=== PATIENT | female | born 1950 | race Caucasian/White ===

== ENCOUNTER 2017-07-04 01:31 | Inpatient (IN) | payer MEDICARE, OTHER ==
[2017-07-03 16:04] LABS: INR 0.98
[~2017-07-04] VITALS: Ht 165.1 cm; Wt 104.8 kg
[2017-07-04] VITALS (16 sets, daily range): BP systolic 97–165; BP diastolic 50–112
[~2017-07-04 01:31] MED LIST: ACET-1966 PO; ACET-2043 PO; ALPR-434 PO; AMAN100T4 PO; ASPI-1471 PO; CARB1TAB11 PO; CARB1TAB12 PO; CARB1TAB18 PO; CARI250T10 PO; FURO-47 PO; HYDR-389 PO; IBUP800T37 PO; LOSA50TA68 PO; NITR0.4T3 SL; POTA99TA6 PO; RANI-366 PO; ROPI2TAB27 PO; ROSU20TA23 PO; [UNRECOGNIZED DRUG - CODE] PO
[2017-07-04] MEDS ORDERED: THROMBIN TOP SOLN 5000INTLU VL ONE (09:34)
[2017-07-04] MEDS ORDERED: GELATIN SPONGE 12-7MM ONE (09:34)
[2017-07-04] MEDS ORDERED: fentaNYL CITR 250 MCG/5 ML AMP ONE (10:12)
[2017-07-04] MEDS ORDERED: LIDOCAINE MPF 1% 5 ML VIAL ONE (10:13)
[2017-07-04] MEDS ORDERED: SUGAMMADEX SOD 200 MG/2 ML SDV ONE (10:13)
[2017-07-04] MEDS ORDERED: PROPOFOL EMUL(*) 10MG/ML 20 ML 20 ML ONE (10:13)
[2017-07-04] MEDS ORDERED: DEXAMETHASONE SOD PHOS 10MG/ML ONE (10:13)
[2017-07-04] MEDS ORDERED: ONDANSETRON 4 MG/2 ML VIAL ONE ×2 (10:13→15:30)
[2017-07-04] MEDS ORDERED: FAMOTIDINE 20 MG TAB PO ONE (10:55)
[2017-07-04] MEDS ORDERED: cloNIDine EPIDUR INJ 100MCG/ML 40 MCG, ROPIVACAINE 0.5% 20 ML VIAL 25 ML, EPINEPHrine H... INJ ONE (11:20)
[2017-07-04] MEDS ORDERED: ACETAMINOPHEN 500 MG TAB PO ONE (11:20)
[2017-07-04] MEDS ORDERED: MIDAZOLAM 2 MG/2 ML VIAL IVP PRN (11:20)
[2017-07-04] MEDS ORDERED: NORMOSOL R SOLN(*) 1000 ML BAG 1,000 ML IV PRN (11:20)
[2017-07-04] MEDS ORDERED: TRANEXAMIC AC 1000 MG/10ML SDV 1,000 MG in DEXTROSE 5% 50 ML BAG 50 ML IV ONE (11:20)
[2017-07-04] MEDS ORDERED: PREGABALIN 50 MG CAP PO ONE (11:20)
[2017-07-04] MEDS ORDERED: LIDOCAINE/SOD BICARB 8.4% SYR ID ONE (11:20)
[2017-07-04] MEDS ORDERED: CELECOXIB 200 MG CAP PO ONE (11:20)
[2017-07-04] MEDS ORDERED: VANCOMYCIN(*) 1 GM VIAL 1 GM, VANCOMYCIN (*) 0.5 GM VIAL 0.5 GM in NS(*) 0.9% 250 ML BA... IVPB ONE (11:50)
[2017-07-04] MEDS ORDERED: KETAMINE HCL 200 MG/20 ML MDV ONE (12:38)
[2017-07-04] MEDS ORDERED: HYDROmorphone HCL 2 MG/ML SDV ONE (12:52)
[2017-07-04] MEDS ORDERED: ePHEDrine 25 MG/5 ML DISP.SYR IVP ONE (14:00)
[2017-07-04] MEDS ORDERED: MORPHINE SULFATE 30 MG PCA IV PRN (15:00)
[2017-07-04] MEDS ORDERED: ACETAMINOPHEN 500 MG TAB PO PRN (15:00)
[2017-07-04] MEDS ORDERED: FLUSH 10 ML SYR IVP PRN (15:00)
[2017-07-04] MEDS ORDERED: MAGNESIUM CITRATE 300 ML BTL PO PRN (15:00)
[2017-07-04] MEDS ORDERED: ONDANSETRON 4 MG/2 ML VIAL IVP PRN (15:00)
[2017-07-04] MEDS ORDERED: NALOXONE HCL 0.4 MG/ML VIAL IVP PRN (15:00)
[2017-07-04] MEDS ORDERED: PROMETHAZINE 25 MG/ML 1 ML AMP IVP PRN (15:00)
[2017-07-04] MEDS ORDERED: diphenhydrAMINE 25 MG CAP PO PRN (15:00)
[2017-07-04] MEDS ORDERED: KCL/D5LR 20 MEQ/1000 ML PREMIX 1,000 ML IV PRN (15:00)
--- NOTE | 2017-07-04 15:42 | RADIOLOGY IMAGING REPORT ---
FACILITY: [facility] PATIENT NAME: Thea Peguero : 1950 MR: [id number] V: [id number] EXAM DATE: ORDERING PHYSICIAN: DREW MONACO TECHNOLOGIST: Location: [facility] [place] Patient: Thea Peguero : 1950 Visit/Account:[id number] Date of Sevice: 07/04/2017 Exam type: SHOULDER 1 VIEW LEFT History: S/P TOTAL SHOULDER LEFT, CHECK PLACEMENT Comparison: None. Findings: There is a left shoulder arthroplasty that appears in good anatomic alignment on this AP view. A bat kinjal pack projects over the lateral aspect the left upper thorax with electrodes extending over the l eft-sided the neck IMPRESSION: 1. As above Report Dictated By: Gretchen Bray MD at 07/04/2017 3:38 PM Report E-Signed By: Gretchen Bray MD at 07/04/2017 3:39 PM WSN:[id number]
[2017-07-04] MEDS ORDERED: PROMETHAZINE 25 MG/ML 1 ML AMP ONE (16:05)
[2017-07-04] MEDS ORDERED: POTA20TA10 PO (16:34)
--- NOTE | 2017-07-04 17:57 | OPERATIVE REPORT 1 ---
EVENT DATE: July 03, 2017 SURGEON: Lester Bullock MD ANESTHESIOLOGIST: Simon Rodriguez MD ANESTHESIA: General. CHIEF CREATIVE OFFICER: RYAN Todd PREOPERATIVE DIAGNOSIS Left shoulder degenerative joint disease. POSTOPERATIVE DIAGNOSIS Left shoulder degenerative joint disease. PROCEDURE PERFORMED Left total shoulder arthroplasty. ESTIMATED BLOOD LOSS 150 TOURNIQUET TIME None. SPECIMENS None. COMPLICATIONS None. INTRAVENOUS FLUIDS Crystalloid 1400. No colloid. IMPLANTS [employer] 44 glenoid, 10 stem, 10 body, and a 48 x 18 eccentric press-fit. SUMMARY OF PROCEDURE The patient was seen in the preoperative holding area. She had been doing reasonably well. She had the remote control unit now that could be used to turn off the nerve stimulator, which was done. A decision was made not to do any type of a block because of the wires in that region. She was brought back to the operating room and was given a general anesthetic. She was placed in the semi-supine beach chair position. The left shoulder was prepped and draped in the usual sterile fashion. A deltopectoral approach was then planned to avoid the nerve stimulator motor unit. This incision was made through skin and subcutaneous tissue after adequate prep and drape using Ioban drape. The deltopectoral approach took us directly onto the cephalic vein which was left with the deltoid and retracted. I had to use a Santy spoon to develop the subdeltoid plane as it was somewhat scarred down. Her rotator cuff looked like it was in good condition. Her conjoined tendon was extremely tight, making it a bit more difficult than usual to get a retractor into that space, but we were able to do so with some internal rotation. A split was then made in the relatively healthy subscapularis, taken off as a combined structure with the capsule and placed under tension with tagging sutures. The fluid was clear. She had very large osteophytes. She was rotated into external rotation, and then the cutting guide was used to osiel the axis of the slope with the cut, after which I externally rotated and flexed her so we could get a direct look at the posterior aspect of the rotator cuff attachment and then used the saw along the initially marked axis to exit directly above the rotator cuff. I made a conservative cut first and then came back in and did another sliver to get right down to the articular cartilage edge. Extra osteophytes which were large at this time were removed, and then we used a rasp to smooth the margin at the head-neck junction. We had also split away the top 1 cm of pectoralis. After placing a metal guard on top of the cut surface, we then retracted it posteriorly and divided the biceps tendon, but left it attached to the glenoid so that we could use this a retractor to debride the labral tissue all the way circumferentially, after which I used a Gibson elevator to progressively free up the glenoid neck and do the same with the humeral neck. Having done this, we got good exposure of the glenoid and proceeded to check different sizes. Her head was quite a bit larger than 48 mm, but when we looked at the actual [place] head compared to the osteophyte, it really was adequate to do a 48. In fact, that is the exact size that she had been at one time, so we decided to use a 44 as her glenoid was rather unusual. It was quite narrow from anterior to posterior, but relatively tall. A 44 would certainly fit well on the superior to inferior dimension, but it was a little bit wide on the anterior-posterior. I did not want to go down to a 44 head. We placed the central drill hole and then the peripheral pegs, all of which were contained with the possible exception of the posterior inferior that was very close to the margin. I think there might have been some loss of containment deep. The bone was in good condition. We had also reamed down to a flat surface. Having done this, we trialed the 3 peg trial, and it sat very nicely with no evidence of rocking or irregularity. Thrombin-soaked Gelfoam was then inserted into each hole, and we waited while cement was mixed. I also took bone graft from the head and packed it into the fins of the Collins Peg Glenoid. Having mixed the cement, it was then injected into the three holes, and we attempted to place the Collins Peg Glenoid, but unfortunately, the retractor that was being used to hold back the humerus was getting in the way of the glenoid, and I tried twice to lever the glenoid in rotation to line up the holes into the backside, but it would not quite line up. By the time I made my second attempt, the cement had already started to polymerize, so I aborted this and just removed the extra cement and mixed one more batch. We changed the retractor to a Fukuda which had the hole that allowed for rotation of the implant and also used a glenoid holding tool, allowing me to apply some torque. We repeated the irrigation, repeated all of the drying of the three holes, added a little bit more bone graft, then mixed cement, and injected it one more time into the three peripheral holes. We then placed the glenoid with relative ease, impacted it into position, and held it until full polymerization. The excess cement was then removed. The wound was irrigated, and we injected a bit of local anesthetic before proceeding outward to expose the humeral head. We started with the central drill and proceeded to go larger, ultimately getting to ten which had excellent cortical chatter. The Brosteotome was used checking version which was around 30 of retro, and then we went with the trial stem, but before impacting it all the way, I had split up the sliver of humeral neck that we had cut as a secondary cut and used this as wafers of bone graft along the medial side of the neck so we could lateralize the head and also induce a little bit more stability since she was relatively tight in the intramedullary canal, but rather patulous on the metaphysis. Once we got good stability here, I trialed a couple of heads, and it looked like the 48 x 18 eccentric would be best. The trial was removed, and then we proceeded to assemble the 10 mm final implant, put it down about 4[address], added a little bit more bone graft on its anterior and posterior margins to create additional stability, placed the eccentric head in the same eccentricity that we had trialed, and then hammered the entire construct together such that the Rossi taper seated while driving the stem the last centimeter or two. The wound was irrigated again. We injected some additional local anesthetic and then repaired the subscapularis using nonabsorbable #2 suture including previously placed suture that was in three transosseous drill holes to augment the repair. The wound was irrigated again, and then we closed the subcutaneous plane and the subcuticular plane with absorbable suture, followed by Steri- Strips. She was given a dry, sterile dressing. She was awakened and transferred to the recovery room in stable condition. ANETA
[2017-07-04] MEDS ORDERED: ALPRAZolam 1 MG TAB PO PRN (18:55)
--- NOTE | 2017-07-04 18:59 | Hospitalist Consultation ---
History of Present Illness Requesting Physician Dr. Bullock Reason for Consult Hypertension History of Present Illness This patient was admitted for shoulder surgery. It is reported that the surgery went well and was without complication. History Problems: (1) HTN (hypertension) Status: Chronic (2) Parkinson disease Status: Chronic (3) Hypercholesterolemia Status: Chronic (4) Depression Status: Chronic (5) CAD (coronary artery disease) Status: Acute (6) History of mastectomy Status: Chronic (7) History of coronary artery stent placement Status: Chronic Home Meds Reported Medications Potassium Chloride (Potassium Chloride) 20 Meq Tablet.er, 1 TAB PO DAILY 07/04/17 Carbidopa/Levodopa/Entacapone ([id number] 150 MG) 1 Each Tablet, 1 EACH PO TID 07/02/17 Ranitidine Hcl (ZANTAC) 150 Mg Tablet, 150 MG PO QDAY, TAB 07/02/17 Acetaminophen (TYLENOL) 325 Mg Tablet, 650 MG PO QDAY Y for PAIN, TAB 07/02/17 Ibuprofen (IBUPROFEN) 800 Mg Tablet, 1 TAB PO QDAY Y for PAIN, TAB 07/02/17 Chlorzoxazone (CHLORZOXAZONE) 500 Mg Tablet, 500 MG PO HS, #1.5 07/02/17 Furosemide (FUROSEMIDE) 40 Mg Tablet, 1 TAB PO QDAY, TAB 07/02/17 Aspirin (ASPIR 81) 81 Mg Tablet.dr, 81 MG PO QDAY, TAB 08/29/14 Alprazolam (XANAX) 1 Mg Tablet, 1 TAB PO TID Y for ANXIETY, TAB 08/29/14 Nitroglycerin (NITROGLYCERIN) 0.4 Mg Tab.subl, 0.4 MG SL Q5MIN Y for ANGINA 08/29/14 Amantadine Hcl (AMANTADINE) 100 Mg Tablet, 100 MG PO PRN 08/29/14 Rosuvastatin Calcium (CRESTOR) 20 Mg Tablet, 20 MG PO QDAY 08/29/14 Losartan Potassium (COZAAR) 50 Mg Tablet, 100 MG PO QDAY 08/29/14 Discontinued Reported Medications Potassium Gluconate (POTASSIUM) 99 Mg Tablet, 20 MG PO QDAY 07/02/17 Carbidopa/Levodopa/Entacapone ([id number]-LILK 100 MG) 1 Each Tablet, 1 EACH PO 07/02/17 Carbidopa/Levodopa/Entacapone ([id number] 75 MG) 1 Each Tablet, 1 EACH PO 2-3XD 07/02/17 Acetaminophen/Hydrocodone (HYDROCODON-ACETAMINOPH 7.5-325) 1 Each Ea, 1-2 EACH PO Q4-6H, #40 EA 09/04/14 Carisoprodol (SOMA) 250 Mg Tablet, 250 MG PO Y for MUSCLE SPASMS, TAB 08/29/14 Ropinirole Hcl (REQUIP) 2 Mg Tablet, 2 MG PO BID 08/29/14 Allergies: Coded Allergies: carbidopa (Verified Adverse Reaction, Unknown, 07/02/17) levodopa (Verified Adverse Reaction, Unknown, 07/02/17) Patient History: FH: Parkinson's disease MOTHER FH: cancer BROTHER OR SISTER FH: heart attack FATHER, BROTHER OR SISTER FH: heart disease BROTHER OR SISTER BROTHER OR SISTER Hx Smoking: Yes (1 PPD FOR 25 YEARS, QUIT 2011) Smoking Status: Former Smoker, Heavy Tobacco Smoker Caffeine Intake: Coffee, Soda Caffeine/Cups Per Day: 1 CUP DAY Hx Alcohol Use: No Hx Substance Use Disorder: No Review of Systems All Systems Reviewed/Normal: Yes Exam Vital Signs Vital Signs Date Time Temp Pulse Resp B/P (MAP) Pulse Ox O2 Delivery O2 Flow Rate FiO2 07/04/17 18:00 76 143/63 (89) 93 High-Flow Nasal Cannula 07/04/17 17:00 4.0 07/04/17 16:21 97.8 12 Cardiovascular: Regular Rate and Rhythm Respiratory: Clear to Auscultation Medical Decision Making Data Points Result Diagram: 07/04/17 7842 Assessment and Plan Problems: (1) HTN (hypertension) Status: Chronic Assessment & Plan: She is on chronic treatment with losartan and Lasix. (2) Parkinson disease Status: Chronic Assessment & Plan: She is on chronic treatment with Sinemet. (3) Hypercholesterolemia Status: Chronic Assessment & Plan: She is on chronic treatment with Crestor. (4) Depression Status: Chronic Assessment & Plan: She is on chronic treatment with Xanax. (5) CAD (coronary artery disease) Status: Acute Assessment & Plan: She is on chronic treatment with aspirin. Venous Thromboembolism Antithrombotics Is Pt On Any Antithrombotics?: No Exam Sepsis Risk: No Definite Risk PHYLLIS AWAN DO July 04, 2017 18:58
[2017-07-04] MEDS: ENTACAPONE PO SCH (20:44)
[2017-07-04] MEDS: LEVODOPA PO SCH (20:44)
[2017-07-04] MEDS: CARBIDOPA PO SCH (20:44)
[2017-07-04] MEDS ORDERED: CHLORZOXAZONE 500 MG TAB PO SCH (21:00)
[2017-07-05 06:01] VITALS: BP 123/21
[2017-07-05] MEDS: ENTACAPONE PO SCH (06:03)
[2017-07-05] MEDS: CARBIDOPA PO SCH (06:03)
[2017-07-05] MEDS: LEVODOPA PO SCH (06:03)
[2017-07-05] MEDS ORDERED: OXYC-373 PO (07:49)
[2017-07-05] MEDS ORDERED: ROSUVASTATIN CALCIUM 10 MG TAB PO SCH (09:00)
[2017-07-05] MEDS ORDERED: LOSARTAN POTASSIUM 50 MG TAB PO SCH (09:00)
[2017-07-05] MEDS ORDERED: FUROSEMIDE 40 MG TAB PO SCH (09:00)
[2017-07-05] MEDS ORDERED: RANITIDINE HCL 150 MG TAB PO SCH (09:00)
[2017-07-05] MEDS ORDERED: POTASSIUM CHL 20 MEQ TABCR PO SCH (09:00)
[2017-07-05 09:08] VITALS: BP 143/67
[2017-07-05 14:00] VITALS: Ht 165.1 cm; Wt 104.8 kg
== END 2017-07-05 13:40 | disposition home or self-care (01) | DRG 483 ==
LOC: OR 01:31 → MED 16:10
PROVIDERS: ADMIT Orthopaedic Surgery Hand Surgery; ATTEND Orthopaedic Surgery Hand Surgery
PROC: 0RRK0JZ Replacement of Left Shoulder Joint with Synthetic Substitute, Open Approach (ICD-10-PCS; principal; 2017-07-04 12:50)
DX: M19.012 Primary osteoarthritis, left shoulder (principal); M25.712 Osteophyte, left shoulder; I10 Essential (primary) hypertension; I25.10 Atherosclerotic heart disease of native coronary artery without angina pectoris; F41.8 Other specified anxiety disorders; G20 Parkinson's disease; E78.00 Pure hypercholesterolemia, unspecified; I25.2 Old myocardial infarction; Z90.710 Acquired absence of both cervix and uterus; Z90.11 Acquired absence of right breast and nipple; Z92.3 Personal history of irradiation; Z95.5 Presence of coronary angioplasty implant and graft; Z88.8 Allergy status to other drugs, medicaments and biological substances; Z87.891 Personal history of nicotine dependence; Z85.3 Personal history of malignant neoplasm of breast; Z96.89 Presence of other specified functional implants
CPT/HCPCS: 36415; 81001; 85014; 85018; 85610; 86850; 86900; 86901; 97165; J0171; J0735; J1100; J1170; J1885; J2001; J2250; J2405; J2550; J2704; J2795; J3010; J3370; J3490; J7050; J7060